=== PATIENT | male | born 1990 | race Caucasian/White ===

== ENCOUNTER 2022-05-07 08:49 | Emergency (ER) | payer SELFPAY ==
[2022-05-07 08:50] VITALS: BP 144/97; PULSE 111; RESP 18; TEMP 36.7; O2SAT 100
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
--- NOTE | 2022-05-07 08:52 | PC.NURSE ---
Trauma alert cancelled by
--- NOTE | 2022-05-07 08:55 | PC.NURSE ---
0850. at bs, pt has no complaints and states he does not want any scans or medical interventions at this time and he is ok. PT is a&o x4 0855 CPD at bs, pt refusing any medical tx at this time, including scans, blood work. 0905 Pt is okay to have left ear stitched at this time.
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
--- NOTE | 2022-05-07 09:01 | PC.NURSE ---
Calling [facility] for Dr Nevarez to consult on Ear Laceration.
--- NOTE | 2022-05-07 09:10 | PC.NURSE ---
PT denies transfer to [facility] and wants ER MD to stitch ear at this time, verbalized understanding of risk explained by MD. Pt A&O x4.
--- NOTE | 2022-05-07 09:23 | PC.NURSE ---
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 CPD in room, PT is a&o x4
--- NOTE | 2022-05-07 09:24 | PC.NURSE ---
left ear bandage placed on laceration at this time. Pt agreeable to this intervention. aware
--- NOTE | 2022-05-07 09:26 | PC.NURSE ---
Renae from lab came to do legal draw on patient, patient refused, waiting on officer to talk to patient about draw.
--- NOTE | 2022-05-07 09:55 | PC.NURSE ---
Patient refused to let lab do legal draw on him labs and toxicology screen.
[2022-05-07 10:30] VITALS: BP 124/87; PULSE 92; O2SAT 97
[2022-05-07 10:39] VITALS: BP 132/85; PULSE 93; O2SAT 98
--- NOTE | 2022-05-07 10:51 | PC.NURSE ---
pt left ear cleaned, neosporin applied with vasline guaze and wrapped with 4x4, pt tolerated well. PT refused scans or any further medical interventions at this time. pt states he feels fine, educated pt that he can feel fine at this time but things can change with time. PT aware of risk and MD aware and refuses at this time. CPD at bs.
[2022-05-07 11:54] VITALS: BP 134/72; PULSE 90; RESP 16; TEMP 36.8; O2SAT 98
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
== END 2022-05-07 11:54 | disposition home or self-care (01) ==
PROVIDERS: Emergency Provider Emergency Medicine
DX: S01.312A Laceration without foreign body of left ear, initial encounter (principal); S09.8XXA Other specified injuries of head, initial encounter; V89.2XXA Person injured in unspecified motor-vehicle accident, traffic, initial encounter; F17.210 Nicotine dependence, cigarettes, uncomplicated
CPT/HCPCS: 12013; 99283; 99284